=== PATIENT | female | born 1980 | race Caucasian/White ===

== ENCOUNTER 2021-04-30 15:04 | Emergency (ER) | payer BC, SELFPAY ==
[2021-04-30 15:05] VITALS: BP 151/98; PULSE 101; RESP 16; TEMP 37; O2SAT 98; BMI 30.2
--- NOTE | 2021-04-30 17:48 | ED.RN ---
called pt to go to room and no response
== END 2021-04-30 17:48 ==
LOC: ED 17:50
PROVIDERS: PCP Family Medicine
DX: K08.89 Other specified disorders of teeth and supporting structures (principal)

== ENCOUNTER 2021-07-10 13:10 | Emergency (ER) | payer SELFPAY ==
[2021-07-10 13:10] VITALS: BP 127/94; PULSE 90; RESP 18; TEMP 35.9; O2SAT 100; BMI 29.2
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
--- NOTE | 2021-07-10 15:25 | RAD_ITS ---
STUDY: X-RAY - RIGHT HAND REASON FOR EXAM: Female, 40 years old. Injury/Pain TECHNIQUE: 3 view(s) of the hand. COMPARISON: None. FINDINGS: Normal radiocarpal articulation. Normal distal radioulnar joint. Normal visualized carpal bones. Normal carpal articulations Normal carpometacarpal articulation of the thumb. Normal second through fifth carpometacarpal joints. Normal metacarpi. Normal metacarpophalangeal joint of the thumb. Normal interphalangeal joint of the thumb. Normal proximal and distal phalanges of the thumb. Normal metacarpophalangeal joints of the second through fifth fingers. Normal proximal and distal interphalangeal joints of the second through fifth fingers. Normal phalanges of the second through fifth fingers. The soft tissue structures are unremarkable. RAD/Hand Min 3 Views IMPRESSION: Normal x-ray examination of the hand. Electronically Signed: Jeremy Bishop MD at 15:40 EST , Service support ,
== END 2021-07-10 16:42 | disposition home or self-care (01) ==
PROVIDERS: Emergency Provider Emergency Medicine; PCP Family Medicine
DX: S39.012A Strain of muscle, fascia and tendon of lower back, initial encounter (principal); S60.221A Contusion of right hand, initial encounter; V44.5XXA Car driver injured in collision with heavy transport vehicle or bus in traffic accident, initial encounter; Y93.9 Activity, unspecified; Y99.9 Unspecified external cause status; Y92.410 Unspecified street and highway as the place of occurrence of the external cause; Z87.891 Personal history of nicotine dependence
CPT/HCPCS: 72100; 73130; 99282

== ENCOUNTER 2022-12-10 09:45 | Emergency (ER) | payer BC, SELFPAY ==
[2022-12-10 09:46] VITALS: BP 132/100; PULSE 91; RESP 12; TEMP 36.1; O2SAT 100; BMI 30.7
--- NOTE | 2022-12-10 09:51 | EX.ED.DYSGE1 ---
HPI History of Present Illness Chief Complaint: Headache PFSH PFSH Home Medications ferrous sulfate 325 mg (65 mg iron) tablet 325 mg PO DAILY@0800 10/08/13 [History Last Taken 10/18/13 one] vits,calcium no.78-iron fumarate-folic acid 29 mg-1 mg tablet (Prenatabs FA) 1 tab PO DAILY 10/08/13 [History Last Taken 10/18/13 one] ibuprofen 200 mg tablet 600 mg PO Q4H PRN PRN Pain ##60 10/19/13 [Rx Last Taken Unknown] oxycodone-acetaminophen 5 mg-325 mg tablet 1 - 2 tab PO Q6H PRN PRN Pain #20 tabs 10/19/13 [Rx Last Taken Unknown] metoclopramide HCl 5 mg tablet (Reglan) 5 mg PO Q8H PRN PRN nausea and vomiting 7 days #20 tabs 12/10/22 [Rx Last Taken Unknown] Allergy/AdvReac Type Severity Reaction Status Date / Time Penicillins [PCN] Allergy Hives Verified 12/10/22 09:48 Surgical History Hx of arthroscopy of right knee Hx of laparoscopy Hx of tonsillectomy Social History (Updated 07/10/21 @ 15:[address] Jack Langford, DO) Smoking Status: Unknown if ever smoked Electronic Cigarette Use: with nicotine EXAM Physical Exam Const Vital Signs: 12/10/22 09:46 Temperature 97 F L Temperature Source Temporal Pulse Rate 91 Respiratory Rate 12 Blood Pressure 132/100 H Blood Pressure Mean 110 Pulse Ox 100 Oxygen Delivery Method Room Air [facility] MDM Narrative Medical decision making narrative: HISTORY OF PRESENT ILLNESS: 42-year-old female here with headache. Patient states this began 6 days ago. Is been intermittent with no inciting event. Not worse in the morning. Patient notes he did begin from no headache to maximal intensity within 1 minute, however she denies vomiting, neck pain or stiffness, changes in vision, fever, history malignancy, syncope, seizures. REVIEW OF SYMPTOMS: Pertinent positives: Headache Pertinent negatives: Slurred speech, dysphagia, visual loss, loss of sensation, loss of movement, syncope PHYSICAL EXAM: Nursing triage notes reviewed, Vital signs reviewed Constitutional: please see mdm HENT: MMM Eyes: Pupils equal round and reactive to light, Extraocular muscles intact Neck: No stridor, no JVD, full neck ROM Lungs: Clear to auscultation, No wheezing or rales. No increased work of breathing, no conversational dyspnea, no accessory muscle use, no nasal flaring. No respiratory distress noted Heart: Regular rate and rhythm, No murmurs, No rubs and No gallops, 2+ distal pulses (radial, femoral, posterior tibial) in all extremities Abdomen: Soft, there is no tenderness, rigidity, rebound or guarding, no obvious peritoneal signs, no palpable pulsatile abdominal masses, no auscultated abdominal bruit : No CVAT Extremities: No edema Neuro: Alert and oriented x3, neuro exam at baseline, cranial nerves II through XII are intact. No pain with extraocular muscle movement. There is negative test of skew. Normal speech. 5 of 5 strength in upper and lower extremities in flexion extension. Intact sensation to light touch in upper and lower extremity dermatomes. No truncal or extremity ataxia. No dysdiadochokinesia. Normal gait. 2+ reflexes. No meningeal signs. Negative Babinski. NIH of 0 Skin: No rash or lesions noted MEDICAL DECISION MAKING: Chief Complaint: Headache External records reviewed: No recent advanced of the brain MDM Narrative: Patient was hemodynamically stable, afebrile, nontoxic-appearing there are no focal neurologic deficits. I considered the following differential diagnosis: Bleed, mass, primary headache The patient looks great and is in no significant objective discomfort currently. The patient's headache is non-specific. Exam is unremarkable. The patient is in no distress and the patient?s neurological exam is non-focal, neck is supple and without meningismus. The headache is not consistent with meningitis or infection, nor is it consistent with intracranial bleed (SAH etc.), carotid dissection, nor mass by history and examination. I obtained a CT scan of the patient's head to rule out less likely but certainly dangerous etiology such as bleed, mass. CT scan showed no evidence of intracranial bleed, mass. I gave the patient medication and outpatient follow-up. The patient was instructed to return as needed or if symptoms changed or worsened, fever developed or inability to tolerate fluids. The patient agreed with plan. Factors affecting care:. None Social determinants of health: None History obtained from others: None none Shared decision making: I will have a discussion with the patient and or visitors regarding risk/benefits of further testing or admission. They will be made aware of of the risk/benefits inherent in this decision they will be given the opportunity to voice understanding. Consults: Radiography Diagnostic Testing: Clinical Impression(s) from Imaging Studies Brain CT 12/10/22 10:00 IMPRESSION: Partial opacification of the left maxillary sinus as well as the ethmoid sinuses bilaterally. Electronically Signed: Jeremy Bishop MD at 10:30 EDT , Discharge Plan Triage Chief Complaint: Headache ED Provider: Ifeanyi Cagle Dx/Rx/DC Orders Clinical Impression: Headache Instructions: ED Sinus Headache Prescriptions: New metoclopramide HCl [Reglan] 5 mg tablet 5 mg PO Q8H PRN PRN (Reason: nausea and vomiting) 7 Days Qty: 20 0RF No Action vit,[id number] [Prenatabs FA] 1 TABLET tablet 1 tab PO DAILY ferrous sulfate 325 MG tablet 325 mg PO DAILY@0800 oxycodone-acetaminophen 1 TABLET tablet 1 - 2 tab PO Q6H PRN PRN (Reason: Pain) Qty: 20 0RF ibuprofen 200 MG tablet 600 mg PO Q4H PRN PRN (Reason: Pain) Qty: 60 1RF Stand Alone Forms: ED Work / School Excuse Primary Care Provider: Mark Godwin Referrals: Mark Godwin MD [Primary Care Provider] - Activity Restrictions/Additional Instructions: Thank you for trusting us with your care today! Please take Tylenol (2 pills, 650 mg), ibuprofen (2 pills, 400 mg) every 6 hours as needed for pain and fever control. Please take Reglan as needed for headache. Please return to the emergency department if your symptoms change or worsen. Please follow with your primary care physician for further outpatient evaluation and management. Disposition Disposition: Home, Self Care Discharge Date/Time: 12/10/22 10:49
--- NOTE | 2022-12-10 10:00 | CT_ITS ---
STUDY: CT BRAIN WITHOUT CONTRAST REASON FOR EXAM: Female, 42 years old. [facility] RADIATION DOSAGE (If Supplied By Facility): CTDIvol = ( 44.99 ) mGy, DLP = ( 745.49 ) mGycm TECHNIQUE: Transaxial CT imaging of the brain was performed without administration of intravenous contrast material. Individualized dose optimization techniques were used for this CT. COMPARISON: No relevant priors. FINDINGS: Normal soft tissue structures. Normal calvarium. Normal size ventricles and extra-axial spaces for the patient''s age. Normal white matter tracts of the cerebral hemispheres. Normal basal ganglia and thalami. Normal brainstem. Normal cerebellum. There is no intracranial hemorrhage. There are no findings of an acute ischemic infarction. There is partial opacification of the inferior aspect of the left maxillary sinus as well as the ethmoid sinuses bilaterally. CT/Brain/Head without Contrast IMPRESSION: Partial opacification of the left maxillary sinus as well as the ethmoid sinuses bilaterally. Electronically Signed: Jeremy Bishop MD at 10:30 EDT ,
== END 2022-12-10 10:49 | disposition home or self-care (01) ==
PROVIDERS: Emergency Provider Emergency Medicine; PCP Family Medicine; Visit Provider Emergency Medicine
DX: R51.9 Headache, unspecified (principal)
CPT/HCPCS: 70450; 99282

== ENCOUNTER 2025-05-10 20:50 | Observation (INO) | payer BC, SELFPAY ==
[2025-05-10 20:51] VITALS: BP 150/98; PULSE 81; RESP 18; TEMP 36.2; O2SAT 98; BMI 38.6
--- NOTE | 2025-05-10 21:15 | CT_ITS ---
PROCEDURE: ABDOMEN/PELVIS W IV CONT ONLY 05/10/2025 REASON FOR EXAM: RIGHT UPPER QUADRANT ABDOMINAL PAIN. SUSPECT GALL TECHNIQUE: Procedure Code: [id number] Modality: CT Procedure: ABDOMEN/PELVIS W IV CONT ONLY Coronal and Sagittal reconstruction series were provided. CONTRAST: Isovue 370 VOLUME: 90 mL One or more dose reduction techniques were used (e.g., Automated exposure control, adjustment of the mA and/or kV according to patient size, use of iterative reconstruction technique. RADIATION DOSE SUMMARY: CTDlvol: 21.5 mGy DLP: 1137 mGycm COMPARISON: None FINDINGS: Lung bases: Bibasilar atelectasis. Liver: Diffuse fatty infiltration. Gallbladder: Gallbladder is distended with sludge there is 7 mm calculus within gallbladder fundus and 1.3 cm calculus impacted within gallbladder neck. Mild CBD dilatation of 7 mm. No definite evidence of pericholecystic fluid. Spleen: Normal size. Pancreas: Normal size without evidence of mass surrounding inflammation or ductal dilation. Adrenals: Nonspecific unremarkable bilateral adrenal glands Kidneys: Normal renal sizes. No hydronephrosis. Bladder: Unremarkable Reproductive Organs: Unremarkable Bowel: No bowel obstruction. [id number] stool burden. Scattered colonic diverticulosis without evidence of diverticulitis. Appendix: The appendix is not identified. There is no inflammatory process identified in the right lower quadrant to suggest appendicitis. Lymph nodes: Multiple scattered mesenteric lymph nodes such as right lower quadrant lymph node measuring 7 mm (series 2, image 67) additional subcentimeter scattered nodules are also visualized. Vasculature: The abdominal aorta and IVC are normal. Peritoneum / Retroperitoneum: Unremarkable Bones: Unremarkable CT/Abdomen/Pelvis W IV Cont ONLY IMPRESSION: Gallbladder distended with sludge. There is 7 mm calculus within gallbladder f undus and 1.3 cm calculus impacted within gallbladder neck. There is no definite evidence of surrounding pericholecystic fluid. Diffuse hepatic steatosis. Scattered mesenteric lymph nodes likely reactive. Reading Location: [id number]
--- NOTE | 2025-05-10 21:16 | ED.VIS.GI ---
HPI HPI - GI History of Present Illness Chief Complaint: Abd Pain Informant: patient Abdominal Pain/Flank Pain Onset: Today and Hours Context: Gradual Onset Timing: Continuous Location: RUQ Current Severity: Moderate Maximum Severity: Moderate Worsened by: Nothing Relieved by: Nothing Nausea/Vomiting/Emesis GI Symptom: Positive for Nausea Onset: Today Severity: Moderate Diarrhea/Melena/Hematochezia GI Symptom: Positive for Diarrhea; Negative for Melena or Hematochezia Onset: Today Stool Quality: Positive for Loose Severity: Mild Associated Symptoms Associated Symptoms: Negative for Dysuria, Frequency, Hematuria or Urgency Narrative Narrative: 44-year-old female right upper quadrant abdominal pain began around 11 AM today. Associated nausea and diarrhea. No vomiting no fever no dysuria. History of gallbladder trouble 12 years ago when she was but cannot remember what the ultrasound showed never had her gallbladder taken out. She has had tubal ligation no other abdominal surgeries. The last several weeks to months she has not had significant abdominal problems. No drastic weight loss. No dysuria. States she cannot be she is currently single has had tubal ligation. Prior similar symptoms: Yes Recent Illness/Hospitalization: No PFSH PFSH Home Medications ?Medication ?Instructions ?Recorded ?Last Taken ?Type ferrous sulfate 325 mg (65 mg 325 mg PO DAILY@0800 10/08/13 10/18/13 History iron) tablet one vits,calcium no.78-iron 1 tab PO DAILY 10/08/13 10/18/13 History fumarate-folic acid 29 mg-1 mg one tablet (Prenatabs FA) ibuprofen 200 mg tablet 600 mg (3 x 200 mg) PO Q4H PRN PRN 10/19/13 Unknown Rx Pain ##60 oxycodone-acetaminophen 5 mg-325 1 - 2 tab PO Q6H PRN PRN Pain #20 10/19/13 Unknown Rx mg tablet tabs metoclopramide HCl 5 mg tablet 5 mg PO Q8H PRN PRN nausea and 12/10/22 Unknown Rx (Reglan) vomiting 7 days #20 tabs Allergy/AdvReac Type Severity Reaction Status Date / Time Penicillins (PCN) Allergy Hives Verified 05/10/25 20:51 Surgical History Hx of laparoscopy Hx of tonsillectomy Hx of arthroscopy of right knee Social History housing: house Smoking Status: Unknown if ever smoked Electronic Cigarette Use: with nicotine ROS ROS ED ROS Narrative Abdominal pain. Nausea. Diarrhea. Constitutional Constitutional ED: Denies chills or fever(s) ENT ENT ED: Denies ear pain Cardiovascular Cardiovascular: Denies chest pain Respiratory/Chest Respiratory/Chest: Denies cough or dyspnea Gastrointestinal Gastrointestinal: Reports abdominal pain, diarrhea and nausea; Denies constipation, melena or vomiting Genitourinary Genitourinary ED: Denies dysuria or hematuria Musculoskeletal Musculoskeletal: Denies arthralgias or back pain Integumentary Denies abscess or Abrasions Neurologic Neurologic: Denies headache(s) Psychiatric Psychiatric: Denies anxiety Endocrine Endocrinology: Denies polydipsia Hematologic/Lymphatic Hematologic/Lymphatic: Denies easy bleeding or easy bruising Allergic/Immunologic Allergic/Immunologic ED: Denies mouth swelling, tongue swelling or urticaria EXAM Physical Exam Narrative Exam Narrative: Well-appearing 44-year-old female vital signs stable afebrile. Does not look septic toxic. HEENT exam pupils round react light. Moist mucous members. Neck nontender no JVD. No lymphadenopathy. Lungs clear to auscultation bilaterally. Heart regular rhythm no murmur rate about 80. Chest wall ribs nontender. Abdomen soft nondistended normal bowel sounds without peritoneal signs but does have right upper quadrant tenderness. Left upper and left lower quadrant unremarkable. Minimal right lower quadrant tenderness. No obstruction no hernia or mass. Back nontender no CVA tenderness. Moving all 4 extremities. Nontender no edema normal strength. Neurologically she is awake alert. No focal motor deficits. Const Vital Signs: 05/10/25 20:51 Temperature 97.2 F L Temperature Source Temporal Pulse Rate 81 Respiratory Rate 18 Blood Pressure 150/98 H Blood Pressure Mean 115 Pulse Ox 98 Oxygen Delivery Method Room Air Positive well nourished and well developed; Negative for cachectic, contractures or unkempt General Appearance ED: well developed and NAD; Negative for unkempt, cachectic, contractures or pallor Nutritional Appearance: Negative for cachectic HEENT Reports moist mucous membranes normocephalic and atraumatic Eyes PERRL and EOMs intact bilaterally Neck no lymphadenopathy, supple and no JVD Resp normal respiratory effort and clear to auscultation bilaterally Cardio regular rate, regular rhythm, S1 normal heart sound, S2 normal heart sound and no murmurs GI non-distended and no masses; Negative for non-tender Inspection: Negative for abdominal distention Auscultation: normoactive bowel sounds Palpation: soft and tender; Negative for guarding, rigid, hernia, mass, pulsatile mass or rebound tenderness present Back/Spine no CVA tenderness General Back: Negative for CVA tenderness Cervical Spine: Negative for cervical spine tenderness Thoracic Spine / Upper Back: Negative for thoracic spinal tenderness Lumbar Spine / Lower Back: Negative for lumbar spinal tenderness Coccyx: Negative for other Extremity full ROM General Extremety ED: Negative for edema or tenderness General Extremity: Negative for edema Neuro CN's II-XII intact bilaterally and moves all extremities Sensorium / Orientation: alert, oriented to person, oriented to place and oriented to time Motor Exam: strength 5/5 throughout; Negative for general weakness or strength abnormal Psych mental status grossly normal and thought process normal Appearance: Negative for unkempt Skin no wounds General Skin Exam: Negative for jaundice or pallor Lesions: no lesions Rashes: no rashes Trauma: Negative for abrasion Nails: Negative for discolored MDM MDM MDM Narrative Medical decision making narrative: 44-year-old female right upper quad abdominal pain suspect gallbladder disease. Cholelithiasis versus cholecystitis versus other etiologies. CAT scan labs pending. She will be treated for pain with morphine, IV Toradol and IV Zofran. Repeat exam patient is doing better but her pain started to return. We discussed her test results which are consistent with cholelithiasis with biliary colic. I spoke to general surgeon Dr. Yan Ayala. He reviewed her test results. He is comfortable with her being admitted to have her gallbladder removed tomorrow. I discussed all this with the patient and she is comfortable with the plan. History & Record Review Discussion w/independent historian: Patient Additional record(s) reviewed:: Prior inpatient record, Prior outpatient record, Prior ED visit and Prior labs Lab Data Attestation: I reviewed the patient's lab results. Lab results narrative: CBC shows a white 11.6. H&H 12 and 36. Platelets 286. Electrolytes show a gap of 12. Normal BUN and creatinine. Glucose 125. Liver enzymes normal. Lipase 34. Serum test negative. UA shows no nitrites, no white or red cells. No bacteria. Labs: Laboratory Results - last 24 hr 05/10/25 05/10/25 05/10/25 21:06 21:22 21:42 WBC 11.6 H RBC 4.39 Hgb 12.2 Hct 36.9 L MCV 84.1 MCH 27.8 MCHC 33.1 RDW Std Deviation 41.0 RDW Coeff of Devi 13.3 Plt Count 286 MPV 10.3 Immature Gran % (Auto) 0.500 Neut % (Auto) 72.0 H Lymph % (Auto) 19.6 [place] % (Auto) 5.0 Eos % (Auto) 2.5 Baso % (Auto) 0.4 Absolute Neuts (auto) 8.4 H Absolute Lymphs (auto) 2.28 Nucleated RBC % 0 Sodium 137 Potassium 4.0 Chloride 104 Carbon Dioxide 21.3 Anion Gap 12 BUN 7 Creatinine 0.74 Estim Creat Clear Calc 104.78 Est GFR (MDRD) Non-Af 103 BUN/Creatinine Ratio 9.3 L Glucose 125 H Calcium 8.5 Total Bilirubin 0.21 AST 18 ALT 15 Alkaline Phosphatase 81 Total Protein 6.7 Albumin 4.0 Globulin 2.7 Albumin/Globulin Ratio 1.5 Lipase 34 Serum , Qual NEGATIVE Urine Color Yellow Urine Clarity Clear Urine pH 7.0 Ur Specific [place] 1.010 Urine Protein Negative Urine Glucose (UA) Normal Urine Ketones Negative Urine Occult Blood 10 H Urine Nitrite Negative Urine Bilirubin Negative Urine Urobilinogen Normal Ur Leukocyte Esterase 25 H Urine RBC 0-5 SEEN Urine WBC 0-5 SEEN Ur Squamous Epith Cells 0-5 SEEN Urine Bacteria 0 SEEN Urine Mucus 0 SEEN Radiography Diagnostic Testing: Clinical Impression(s) from Imaging Studies Abdomen/Pelvis CT 05/10/25 21:15 IMPRESSION: Gallbladder distended with sludge. There is 7 mm calculus within gallbladder fundus and 1.3 cm calculus impacted within gallbladder neck. There is no definite evidence of surrounding pericholecystic fluid. Diffuse hepatic steatosis. Scattered mesenteric lymph nodes likely reactive. Reading Location: [id number] Discharge Plan Triage Chief Complaint: Abd Pain ED Provider: Ryan Falcon Dx/Rx/DC Orders Prescriptions: No Action vit,radha [id number] [Prenatabs FA] 1 TABLET tablet 1 tab PO DAILY ferrous sulfate 325 MG tablet 325 mg PO DAILY@0800 oxycodone-acetaminophen 1 TABLET tablet 1 - 2 tab PO Q6H PRN PRN (Reason: Pain) Qty: 20 0RF ibuprofen 200 MG tablet 600 mg PO Q4H PRN PRN (Reason: Pain) Qty: 60 1RF metoclopramide HCl [Reglan] 5 mg tablet 5 mg PO Q8H PRN PRN (Reason: nausea and vomiting) 7 Days Qty: 20 0RF Primary Care Provider: Mark Godwin Referrals: Mark Godwin MD [Primary Care Provider, Medical] Print Language: Portuguese
[2025-05-10 21:17] LABS: Hematocrit 36.9 % (37-47); Hemoglobin 12.2 g/dL (12.0-15.0); Immature Granulocytes Count 0.060 X10^3/uL (0.0-0.0); Mean Corp Hgb Conc 33.1 g/dL (32-36); Mean Corpuscular Volume 84.1 fL (81-99); Mean Platelet Vol. 10.3 fl (6.2-12.0); NRBC Flagged by Analyzer 0 % (0-5); Platelet Count 286 K/mm3 (150-450); RBC Distribution Width CV 13.3 % (11.6-14.6); RBC Distribution Width SD 41.0 fl (35.1-43.9); Red Blood Count 4.39 M/mm3 (4.2-5.4); White Blood Count 11.6 K/mm3 (4.4-11.0)
[2025-05-10] MEDS: Ketorolac 30 MG/ML Syringe IV (21:20)
[2025-05-10 21:36] LABS: AST(SGOT) 18 U/L (<=31); Alanine Aminotransfer ALT/SGPT 15 U/L (<=34); Albumin, Serum 4.0 g/dL (3.5-5.0); Alkaline Phosphatase 81 U/L (35-104); Anion Gap 12 (5-15); BUN 7 mg/dL (4-19); BUN/Creat Ratio 9.3 RATIO (10-20); Calcium,Total 8.5 mg/dL (7.6-11.0); Carbon Dioxide 21.3 mmol/L (21.0-32.0); Chloride 104 mmol/L (98-108); Estimated Creatinine Clearance 104.78 ml/min (50-250); Globulin 2.7 g/dL (2.2-4.2); Glucose 125 mg/dL (70-99); Lipase 34 U/L (13-75); Potassium 4.0 mmol/L (3.3-5.1)
[2025-05-10 21:48] LABS: Mucous, Urine 0 SEEN /hpf (<or=2+)
[2025-05-10 21:49] LABS: Internal QC Validated? YES +Cl - CLEAR BKGD; Pregnancy, Serum, hCG Quali. NEGATIVE Negative
[2025-05-10 21:49] LABS: Color, Urine Yellow (Yellow); Glucose, Dipstick Normal (Normal); Ketone-Dipstick Negative (Negative); Leukocyte Esterase-Dipstick 25 /ul (Negative); Nitrite-Dipstick Negative (Negative); Occult Blood-Urine 10 /ul (Negative); Protein-Dipstick Negative (Negative); Specific Gravity, Urine 1.010 (1.002-1.030); Urine Bilirubin Dipstick Negative (Negative)
[2025-05-10 21:50] LABS: Record Kit Lot#, Serum Preg. 0000980607
[2025-05-10 22:17] LABS: Squamous Epithelial Cells - UA 0-5 SEEN /hpf (5-10)
[2025-05-10 22:18] LABS: Red Blood Cells-Urine 0-5 SEEN /hpf (0-5)
[2025-05-10 22:50] VITALS: BP 124/80; PULSE 70; O2SAT 100
[2025-05-10 23:06] VITALS: BP 150/98; PULSE 81; RESP 18; TEMP 36.2; O2SAT 98
[2025-05-11] VITALS (29 sets, daily range): BP systolic 109–160; BP diastolic 61–92; PULSE 68–114; RESP 12–18; TEMP 36.3–36.8; O2SAT 49–99; BMI 35.4
[2025-05-11] MEDS: Dextrose 5%/0.9% NaCl 1,000 ML 100 ML IV (00:09)
--- NOTE | 2025-05-11 05:55 | EKG12_ITS ---
Test Reason : PRE-OP Blood Pressure : */* mmHG Vent. Rate : 69 BPM Atrial Rate : 69 BPM P-R Int : 136 ms QRS Dur : 82 ms QT Int : 394 ms P-R-T Axes : 76 29 33 degrees QTcB Int : 422 ms Normal sinus rhythm Normal ECG When compared with ECG of 27-Sep-2008 18:48, Vent. rate has decreased by 55 bpm Confirmed by KELVIN PETERSEN, JEAN CARLOS ([id number]), writer editor HANNAH MCRAE ([id number]) on 05/11/2025 1:31:57 PM Referred By: JUSTO Confirmed By: JEAN CARLOS WARREN MD
[2025-05-11] MEDS: Clindamycin 600 MG/50 ML BAG 100 MG IV ×2 (05:56→15:11)
--- NOTE | 2025-05-11 07:22 | RAD_ITS ---
PROCEDURE: CHOLANGIOGRAM/ O R,INITIAL 05/11/2025 REASON FOR EXAM: ABD PAIN TECHNIQUE: Procedure Code: RADCHO Modality: DX Procedure: CHOLANGIOGRAM/ O R,INITIAL. Radiation dose: 1.1 seconds of fluoroscopy. 3.95 mGy. 1 image was obtained. COMPARISON: None FINDINGS: Intraoperative cholangiogram was performed. Unremarkable intra and extrahepatic biliary ducts. No intraluminal filling defect is seen. There is free flow of contrast into the duodenum. RAD/Cholangiogram/ O R,Initial IMPRESSION: Normal intraoperative cholangiogram. Reading Location: [id number]
[2025-05-11 07:34] LABS: Hematocrit 35.7 % (37-47); Hemoglobin 11.5 g/dL (12.0-15.0); Immature Granulocytes Count 0.060 X10^3/uL (0.0-0.0); Mean Corp Hgb Conc 32.2 g/dL (32-36); Mean Corpuscular Volume 85.4 fL (81-99); Mean Platelet Vol. 10.1 fl (6.2-12.0); NRBC Flagged by Analyzer 0 % (0-5); Platelet Count 254 K/mm3 (150-450); RBC Distribution Width CV 13.4 % (11.6-14.6); RBC Distribution Width SD 42.2 fl (35.1-43.9); Red Blood Count 4.18 M/mm3 (4.2-5.4); White Blood Count 7.0 K/mm3 (4.4-11.0)
--- NOTE | 2025-05-11 07:45 | PCM.HP.STD ---
HPI - General General Date of Admission: 05/10/25 Date of Service: 05/11/25 Chief Complaint: Epigastric/Right upper quadrant pain HPI Narrative SOPHIA GRAY, is a 44 F who presents with a 1 day history of epigastric/right upper quadrant pain. Patient states the pain started yesterday around 1100 in the epigastric region radiating straight into her mid back. She noted associated nausea, no vomiting. She noted lack of appetite over the last few days. She notes feeling bloated. She denies fever, however noted chills. She does not feel this is related to reflux symptoms. She notes having diarrhea over the last day, which is abnormal bowel habits for her. Patient states she had a similar episode approximately 11-12 years ago and was told she had gallstones. She was not referred to surgery for removal. She denies having any additional attacks until now. She notes eating a Cheese Estonian for breakfast, 4 1/2 hours the pain occurred. She notes eating a chicken and dumpling soup for lunch and nothing after that. She notes the pain progressed throughout the day and brought her to the ED. 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 She does not take any blood thinners. She denies any cardiac or pulmonary history. She notes surgical abdominal history includes tubal ligation and diagnostic laparoscopy for endometriosis. CT ab/pel demonstrated: IMPRESSION: Gallbladder distended with sludge. There is 7 mm calculus within gallbladder fundus and 1.3 cm calculus impacted within gallbladder neck. There is no definite evidence of surrounding pericholecystic fluid. Diffuse hepatic steatosis. Scattered mesenteric lymph nodes likely reactive. PFSH Home Medications ?Medication ?Instructions ?Recorded ?Last Taken ?Type bupropion HCl 150 mg 24 hr tablet, 150 mg PO DAILY 05/10/25 Unknown History extended release ibuprofen 200 mg tablet 800 mg PO Q4H PRN PRN Pain 05/10/25 Unknown History sertraline 100 mg tablet 150 mg PO DAILY 05/10/25 Unknown History Allergy/AdvReac Type Severity Reaction Status Date / Time Penicillins (PCN) Allergy Hives Verified 05/10/25 20:51 Surgical History Hx of laparoscopy Hx of tonsillectomy Hx of arthroscopy of right knee Social History housing: house Smoking Status: Smoker, status unknown tobacco type: e-cigarettes Electronic Cigarette Use: with nicotine ROS Constitutional Constitutional: Reports systems reviewed and no addt'l complaints, except as documented Eyes Eyes: Reports systems reviewed and no addt'l complaints, except as documented ENT HEENT: Reports systems reviewed and no addt'l complaints, except as documented Cardiovascular Cardiovascular: Reports systems reviewed and no addt'l complaints, except as documented Respiratory/Chest Respiratory/Chest: Reports systems reviewed and no addt'l complaints, except as documented Gastrointestinal Gastrointestinal: Reports systems reviewed and no addt'l complaints, except as documented Genitourinary Genitourinary: Reports systems reviewed and no addt'l complaints, except as documented Musculoskeletal Musculoskeletal: Reports systems reviewed and no addt'l complaints, except as documented Integumentary Integumentary: Reports systems reviewed and no addt'l complaints, except as documented Neurologic Neurologic: Reports systems reviewed and no addt'l complaints, except as documented Psychiatric Psychiatric: Reports systems reviewed and no addt'l complaints, except as documented Endocrine Endocrinology: Reports systems reviewed and no addt'l complaints, except as documented Hematologic/Lymphatic Hematologic/Lymphatic: Reports systems reviewed and no addt'l complaints, except as documented Allergic/Immunologic Allergic/Immunologic: Reports systems reviewed and no addt'l complaints, except as documented Vital Signs Vital Signs Vital Signs: 05/10/25 20:51 05/10/25 22:50 05/10/25 23:06 Temperature 97.2 F L 97.2 F L Temperature Source Temporal Pulse Rate 81 70 81 Respiratory Rate 18 18 Respiratory Effort Respiratory Depth Respiratory Pattern Blood Pressure 150/98 H 124/80 H 150/98 H Blood Pressure Mean 115 94 115 Blood Pressure Source Blood Pressure Position Blood Pressure Location Pulse Ox 98 100 98 Oxygen Delivery Method Room Air 05/11/25 00:22 05/11/25 00:26 05/11/25 06:00 Temperature 98.3 F 97.9 F Temperature Source Oral Oral Pulse Rate 83 78 Respiratory Rate 18 16 Respiratory Effort Normal Non-Labored Respiratory Depth Normal Respiratory Pattern Normal Blood Pressure 128/85 H 120/72 Blood Pressure Mean 99 88 Blood Pressure Source Monitor Monitor Blood Pressure Position Semi-Fowlers Semi-Fowlers Blood Pressure Location Right Arm Right Arm Pulse Ox 98 98 Oxygen Delivery Method Room Air Room Air Room Air Weight Weight: 194 lb 0.108 oz Body Mass Index (BMI) 35.4 Physical Exam Const alert, oriented x3 and no apparent distress HEENT normocephalic and head/scalp atraumatic Eyes PERRL Neck full ROM Lymph Lymphatic: no lymphadenopathy noted Resp normal respiratory effort and clear to auscultation bilaterally Cardio regular rate and regular rhythm GI GI Narrative: Abdomen- distended, soft. Tenderness in the epigastric region. Pain in the RUQ region. no CVA tenderness Back/Spine no CVA tenderness Extremity normal to inspection Skin no rashes or lesions noted Neuro no focal motor deficits and no sensory deficits noted Psych mental status grossly normal, thought process normal and cooperative Results Lab / Micro Data 05/11/25 07:24 05/11/25 07:24 Labs: Laboratory Results - last 24 hr 05/10/25 21:06: WBC 11.6 H, RBC 4.39, Hgb 12.2, Hct 36.9 L, MCV 84.1, MCH 27.8, MCHC 33.1, RDW Std Deviation 41.0, RDW Coeff of Devi 13.3, Plt Count 286, MPV 10.3, Immature Gran % (Auto) 0.500, Neut % (Auto) 72.0 H, Lymph % (Auto) 19.6, [place] % (Auto) 5.0, Eos % (Auto) 2.5, Baso % (Auto) 0.4, Absolute Neuts (auto) 8.4 H, Absolute Lymphs (auto) 2.28, Nucleated RBC % 0, Sodium 137, Potassium 4.0, Chloride 104, Carbon Dioxide 21.3, Anion Gap 12, BUN 7, Creatinine 0.74, Estim Creat Clear Calc 104.78, Est GFR (MDRD) Non-Af 103, BUN/Creatinine Ratio 9.3 L, Glucose 125 H, Calcium 8.5, Total Bilirubin 0.21, AST 18, ALT 15, Alkaline Phosphatase 81, Total Protein 6.7, Albumin 4.0, Globulin 2.7, Albumin/Globulin Ratio 1.5, Lipase 34 05/10/25 21:22: Serum , Qual NEGATIVE 05/10/25 21:42: Urine Color Yellow, Urine Clarity Clear, Urine pH 7.0, Ur Specific [place] 1.010, Urine Protein Negative, Urine Glucose (UA) Normal, Urine Ketones Negative, Urine Occult Blood 10 H, Urine Nitrite Negative, Urine Bilirubin Negative, Urine Urobilinogen Normal, Ur Leukocyte Esterase 25 H, Urine RBC 0-5 SEEN, Urine WBC 0-5 SEEN, Ur Squamous Epith Cells 0-5 SEEN, Urine Bacteria 0 SEEN, Urine Mucus 0 SEEN 05/11/25 07:24: WBC 7.0, RBC 4.18 L, Hgb 11.5 L, Hct 35.7 L, MCV 85.4, MCH 27.5, MCHC 32.2, RDW Std Deviation 42.2, RDW Coeff of Devi 13.4, Plt Count 254, MPV 10.1, Immature Gran % (Auto) 0.900, Neut % (Auto) 71.3 H, Lymph % (Auto) 18.5 L, [place] % (Auto) 6.2, Eos % (Auto) 2.7, Baso % (Auto) 0.4, Absolute Neuts (auto) 5.0, Absolute Lymphs (auto) 1.29, Nucleated RBC % 0 Imaging Radiology Impression Abdomen/Pelvis CT 05/10/25 21:15 IMPRESSION: Gallbladder distended with sludge. There is 7 mm calculus within gallbladder fundus and 1.3 cm calculus impacted within gallbladder neck. There is no definite evidence of surrounding pericholecystic fluid. Diffuse hepatic steatosis. Scattered mesenteric lymph nodes likely reactive. Reading Location: [id number] Assessment & Plan Assessment/Plan (1) Biliary colic: (2) Cholelithiasis: (3) Abdominal pain: PLAN: Plan I am seeing this patient in conjunction with Dr. Medley. He has independently evaluated this patient. Patient is a 44 y/o F who presented with a 1 day history of epigastric and RUQ pain with associated nausea. CT scan of the ab/pel demonstrated gallbladder distention with sludge, 0.7 mm gallstone and 1.3 cm gallstone. No evidence surrounding pericholecystic fluid. Patient continues to be painful in the right upper quadrant with palpation. Dr. Medley will plan to perform a laparoscopic cholecystectomy with intraoperative cholangiogram. Procedure details, risks and benefits have been explained. Patient has had the opportunity to ask and have questions answered. Patient verbally understands and agrees with the plan. Thank you for allowing us to participate in this patient's care. Charges/Coding Visit Charges Inpatient E&M: 80857 Subs Hosp L1 (pre-op; no charge)
[2025-05-11] MEDS: 0.9% Saline Lock 10 ML Syringe IV (08:16)
[2025-05-11 08:31] LABS: AST(SGOT) 40 U/L (<=31); Alanine Aminotransfer ALT/SGPT 33 U/L (<=34); Albumin, Serum 4.0 g/dL (3.5-5.0); Alkaline Phosphatase 80 U/L (35-104); Anion Gap 9 (5-15); BUN 7 mg/dL (4-19); BUN/Creat Ratio 10.3 RATIO (10-20); Calcium,Total 8.3 mg/dL (7.6-11.0); Carbon Dioxide 25.3 mmol/L (21.0-32.0); Chloride 103 mmol/L (98-108); Estimated Creatinine Clearance 108.76 ml/min (50-250); Globulin 2.4 g/dL (2.2-4.2); Glucose 103 mg/dL (70-99); Potassium 3.9 mmol/L (3.3-5.1)
[2025-05-11] MEDS: Lactated Ringers 1,000 ML 15 ML IV (10:05)
--- NOTE | 2025-05-11 10:20 | PRE.ANES_ITS ---
ASA Classification* ASA Classification ASA Classification: 2 and E Assessment & Plan Anesthesia* Anesthesia Assessment Anesthesia Assessment: Discussed sedation and/or anesthesia options, risks, benefits, and alternatives with patient/parents/legal guardian/POA. Questions invited. The patient/parents/legal guardian/POA seems to understand and agrees to proceed with anesthesia plan. Reviewed the physical assessment, medical history, allergy history and patient home medications list prior to surgery/procedure/anesthetic and documented any changes. Performed airway and anesthesia risk assessments. Anesthesia Type Anesthesia Type: General History Source History Obtained from:: Patient and Chart Anesthesia Focused Assessment* Temperature: 97.5 F Pulse Rate: 68 Blood Pressure: 112/76 Respiratory Rate: 14 Pulse Ox: 97 Oxygen Delivery Method: Room Air Airway Assessment Mouth opens: >3 cm Mallampati Score: II Teeth Condition: Intact Neck Range of motion (ROM): Full ROM Labs Anesthesia Preop lab: CBC WBC, (4.4-11.0) 7.0 K/mm3 Today, 07:24 RBC, (4.2-5.4) 4.18 M/mm3 L Today, 07:24 Hgb, (12.0-15.0) 11.5 g/dL L Today, 07:24 Hct, (37-47) 35.7 % L Today, 07:24 Plt Count, (150-450) 254 K/mm3 Today, 07:24 CHEMISTRY Potassium, (3.3-5.1) 3.9 mmol/L Today, 07:24 Sodium, (133-145) 138 mmol/L Today, 07:24 BUN, (4-19) 7 mg/dL Today, 07:24 Creatinine, (0.70-1.20) 0.68 mg/dL L Today, 07:24 Glucose, (70-99) 103 mg/dL H Today, 07:24 COAG Pre-Assessment Diagnosis/Proposed Procedure Planned Operative Procedure(s): Laparoscopic cholecystectomy Anesthesia History Anesthesia History - cradle slide maker: Anesthesia History - cradle slide maker Hx Hospitalization Any Problems With Anesthesia No 05/11/25 00:21 Cholinesterase deficiency No 05/11/25 00:21 You/Your Family Experience No 05/11/25 00:21 fever (hyperthermia) with Relationship Recent Exposure to Contagious No 05/11/25 00:21 Disease Does patient have nerve No 05/11/25 00:21 stimulator Patient instructed to have No 05/11/25 00:21 device shut off --Does patient have Pacemaker No 05/11/25 08:22 or ICD? When Was Last Pacemaker Check QUESTION #4 FULL TEXT: You/Your Family Experience fever (hyperthermia) with Anesthesia Last Oral Intake Last Oral intake: Last Oral Intake NPO since 00:01 05/11/25 08:22 Meds taken in AM with sips of No 05/11/25 08:22 water? Meds patient instructed to take am of surgery PONV PONV - cradle slide maker: PONV - cradle slide maker Female HX of Motion Sickness HX of N/V After Surgery Non-Smoker Duration of Surgery greater than 60 minutes Number of Risk Factors PONV Score Height & Weight Height & Weight: Anesthesia: Height & Weight Height 5 ft 2 in 05/11/25 08:22 Weight: 87.997 kg 05/11/25 08:22 Body Mass Index (BMI) 35.4 05/11/25 08:22 Respiratory Assessment Respiratory Assessment - cradle slide maker: Respiratory Tract Infection Hx - cradle slide maker Hx Respiratory Tract Infection No 05/11/25 00:21 STOP Sleep Apnea STOP Sleep Apnea - cradle slide maker: STOP Sleep Apnea - cradle slide maker Hx Hypertension No 05/10/25 23:58 Hx Sleep Apnea No 05/10/25 23:58 CPAP BIPAP Do you snore loudly (louder No 05/10/25 23:58 than talking or can be heard Do you often feel tired/ No 05/10/25 23:58 fatigued/ sleepy during daytime? Has anyone observed you stop No 05/10/25 23:58 breathing during sleep? STOP Results Negative 05/10/25 23:58 QUESTION #5 FULL TEXT : Do you snore loudly (louder than talking or can be heard through closed doors)? Tobacco Use History Tobacco Use History - cradle slide maker: Tobacco Use History - cradle slide maker Tobacco Use Smoking Status Smoker, status unknown 05/10/25 23:58 Hx Tobacco Use No 05/10/25 23:58 Years Smoking Packs Smoked per Day Smoking Cessation Date was within the last 15 years Hx Smoking Cessation Date Hx Smoking Cessation Counseling Hematologic Medial History Hematologic Hx - cradle slide maker: Hematologic Medical Hx - stain wiper Hx of Blood Transfusion No 05/10/25 23:58 Hx of Transfusion in last 3 No 05/10/25 23:58 Months Date of Last Transfusion (if within last 3 months) Ever experience any problems No 05/10/25 23:58 with transfusion(s)? Specify any problems Hx of Preganancy in last 3 No 05/10/25 23:58 Months Nurse Filling Out Transfusion AHINES 05/10/25 23:58 & Questions: Date: 05/10/25 05/10/25 23:58 Time: 23:59 05/10/25 23:58 Patient unable to answer at this time (ie. confused, unrespo /Reproduction History /Reproductive History - cradle slide maker: /Reproductive Hx- cradle slide maker Hx Now No 05/11/25 00:21 Gestational Age (in weeks): EDC: Hx Hx Para Hx Section SAB No 05/11/25 00:21 Active Medications Active Medications: Current Medications Generic Name Dose Route Start Last Admin Trade Name Freq PRN Reason Stop Dose Admin Acetaminophen 1,000 mg 05/11/25 06:00 05/11/25 05:53 Acetaminophen 500 Mg Tablet PO Not Given Q8 CAROL Sodium Chloride 250 mls @ 15 mls/hr 05/10/25 23:47 IV .[id number] PRN Additional IVPB Infusion Dextrose/Sodium Chloride 1,000 mls @ 100 mls/hr 05/10/25 23:49 05/11/25 00:09 Dextrose 5%/0.9% Nacl IV 100 mls/hr .Q10H CAROL Administration Clindamycin Phosphate 600 mg in 50 mls @ 100 mls/hr 05/11/25 06:00 05/11/25 06:39 Cleocin IV Infused Q8 CAROL Infusion Lactated Ringer's 1,000 mls @ 15 mls/hr 05/11/25 10:00 05/11/25 10:05 IV 15 mls/hr .Q48H CAROL Administration Influenza Virus Vacc Trival Recomb 45 mcg 05/12/25 10:00 Flu Vaccine (6mos Up) 45 Mcg/0.5 Ml Syringe IM 05/12/25 10:01 .ONCE ONE Magnesium Hydroxide 30 ml 05/10/25 23:49 Magnesium Hydroxide 30 Ml Udc PO DAILY PRN PRN Constipation Morphine Sulfate 2 - 4 mg 05/10/25 23:49 05/11/25 05:57 Morphine 2 Mg/Ml Syringe IV 4 mg Q3H PRN PRN Administration Pain Score 6-10 Ondansetron HCl 4 mg 05/10/25 23:49 05/11/25 08:16 Ondansetron 4 Mg/2 Ml Vial IV 4 mg Q8H PRN PRN Administration NAUSEA/VOMITING Oxycodone HCl 5 mg 05/10/25 23:49 Oxycodone 5 Mg Tablet PO Q4H PRN PRN Pain Score 4-10 Sodium Chloride 10 - 40 ml 05/10/25 23:47 05/11/25 08:16 0.9% Saline Lock 10 Ml Syringe IV 10 ml UD PRN Administration SALINE FLUSH PFSH Home Medications ?Medication ?Instructions ?Recorded ?Last Taken ?Type bupropion HCl 150 mg 24 hr tablet, 150 mg PO DAILY 02/25 Unknown History extended release ibuprofen 200 mg tablet 800 mg PO Q4H PRN PRN Pain 1 Unknown History sertraline 100 mg tablet 150 mg PO DAILY 05/10/25 Unk nown History Allergy/AdvReac Type Severity Reaction Status Date / Time Penicillins (PCN) Allergy Hives Verified 05/11/25 09:59 Surgical History Hx of laparoscopy Hx of tonsillectomy Hx of arthroscopy of right knee Social History housing: house Smoking Status: Smoker, status unknown tobacco type: e-cigarettes Electronic Cigarette Use: with nicotine Review of Systems (Anesthesia) ROS Narrative System reviewed and no additional complaints, except as documented.
--- NOTE | 2025-05-11 11:00 | GALL_PTH ---
PATIENT: SOPHIA GRAY LOC: MS3 U#:[id number] AGE/SX: 44/F ROOM: MS311 RE05/10/[address]: Dr. Rosalino Medley MD : 1980 BED: 1 DIS: 05/12/2025 SPEC #: [id number] RECD: 05/11/25 14:20 STATUS: [place] MIGUEL #: [id number] DARRYN: 05/11/25 11:[address]: Rosalino Medley DEPT: SURGICAL PATHOLOGY RECD BY: Hunter Rodrigues ENTERED: 05/11/25 15:12 SP TYPE: JENNI CHRISTIAN DR: Dr. Mark Godwin MD Tissues: A - Gallbladder, NOS Procedures: Surgery Specimen Level III HEADER OPERATION: Laparoscopic cholecystectomy with IOC PRE-OP DIAGNOSIS: Biliary colic, cholelithiasis, abdominal pain TISSUE SUBMITTED: A- Gallbladder MICROSCOPIC DIAGNOSIS A. Gallbladder, laparoscopic cholecystectomy: * Acute and chronic cholecystitis * Cholelithiasis MICROSCOPIC DESCRIPTION Slides are reviewed. GROSS DESCRIPTION A. Received in formalin labeled with the patient's name and date of . Designated as gallbladder is a 6.1 x 3.3 x 1.9 cm nunn-pink to red, somewhat shaggy and intact gallbladder with attached patent cystic duct (inked black, shaved). A lymph node is not present. Opening reveals yellow-green, tenacious bile and multiple irregular to bosselated, yellow choleliths, ranging <0.1 cm to 1.3 cm. The mucosa is nunn-pink to red and granular with a maximum wall thickness of 0.2 cm. Cholesterolosis is present. Engagement Mgr sections are submitted in 1 cassette. [place] 05/11/2025 CPT:96266
[2025-05-11] MEDS: fentaNYL 100 MCG/2 ML Ampul IV (11:04)
[2025-05-11] MEDS: Midazolam 2 MG/2 ML Syringe IV (11:04)
[2025-05-11] MEDS: Lidocaine 1% (5 ml sdv) 5 ML Vial IV (11:17)
--- NOTE | 2025-05-11 11:28 | NURSING ---
0945-pt off unit via bed for surgery
[2025-05-11] MEDS: Bupiv/Epi 0.25% 30 ML Vial (12:00)
[2025-05-11] MEDS: LACTATED RINGERS 1050 ML IV (12:37)
--- NOTE | 2025-05-11 12:47 | OP.PCM_ITS ---
Procedures Digestive 40xxx-49xxx: [id number] Laparo cholecystectomy/graph Operative Report (Standard) Operative Information Date of Procedure: 05/11/25 Pre-Operative Diagnosis: Acute cholecystitis/cholelithiasis Post-Operative Diagnosis: Same Surgery/Procedure Performed: Laparoscopic cholecystectomy with intraoperative cholangiograms resin coater: Yes Motor Scooter Mechanic: Charly Craig Tasks completed by [id number] directory assistance operator: Closing, Trocar and Retracting Additional bankruptcy legal assistant?: No Type of Anesthesia: General and Local RN Documented Start/Stop Times: Operation Date: 05/11/25 11:00 Case Time Into Pre-Op 05/11/25 09:50 Anesthesia Start 05/11/25 10:59 Into Room 05/11/25 10:59 Out of Pre-Op 05/11/25 11:00 Procedure Start 05/11/25 11:20 Procedure Start Time: 11:20 Procedure Stop Time: 12:35 Select all DRAINS/GRAFTS/IMPLANTS that apply: None Special Medications: IV clindamycin Estimated Blood Loss: 20 mL Specimen collected: Yes Description of specimen(s) removed: Gallbladder Description of surgery: The patient is a 44-year-old female who was admitted overnight with right upper quadrant pain and gallstones. Ultrasound showed slight gallbladder wall thickening with no pericholecystic fluid. Her labs were unremarkable however pain was not subsiding. She was subsequently admitted with plans for cholecystectomy. We discussed the details of the planned procedure including risks benefits and alternatives. She wished to proceed. She was brought to the operating room today following informed consent. Preoperative antibiotics were given and a timeout was performed. She was placed supine on the operative table with arms outstretched and arm boards. A general endotracheal anesthesia was induced. The abdomen was then prepped and draped in the usual sterile manner. 5 mm incision was made just below the umbilicus. 5 mm trocar was placed optically. This was placed without incident. Once in place the abdomen was then fully insufflated with CO2 gas. A 5 mm 0 degree scope was inserted there were no signs of bowel or vascular injury. 5 mm tr ocars x 2 were then inserted on the right side of the abdomen. These were placed under direct visualization without difficulty. A 10 mm trocar was placed in the epigastric area. The gallbladder was identified. It was reflected in a cephalad direction. There was adhesions to the undersurface of the gallbladder. These were peeled down carefully. The peritoneum on either side of the gallbladder was incised using hook electrocautery connected to a J-hook. This provided mobilization of the gallbladder to facilitate dissection of the infundibulum. The infundibulum was carefully dissected out. The cystic duct and cystic artery were both dissected out circumferentially. The lower aspect of the gallbladder was also dissected free from the undersurface of the liver such that 2 and only 2 structures were seen going to and from the gallbladder. This established a critical view of safety.. A 10 mm clip was placed on the gallbladder side the cystic duct. Curved scissors were then used to make a small ductotomy. Through the ductotomy, a catheter was inserted and contrast was injected well under C arm. Fluoroscopy showed good transit through the biliary tree without any obvious filling defects. We were within the cystic duct. The cholangiogram catheter was then removed. 310 mm clips were placed on the cystic duct stump and this was then transected. The cystic artery was then clipped and transected in a similar manner. The gallbladder was then cauterized off the undersurface of the liver. Once freed it was placed Endobag and brought out through the 10 mm trocar site. The 10 mm trocar was then replaced. The liver bed was irrigated. Couple areas were cauterized to ensure hemostasis. Hemostatic agent was also applied as the liver was somewhat of a raw surface. The fascia at the 10 mm trocar site was closed using a fascial closure device. This was closed using a 2-0 PDS suture. The remaining trocars were opened up and insufflation was allowed to escape. All the incisions were closed with 4-0 Vicryl. Skin glue was applied as dressing. She was awakened from anesthesia and taken to recovery in good condition. Surgical Findings: Normal cholangiograms. Significant pericholecystic edema. Mild gallbladder wall thickening Complications Complications: No Admit VTE Documentation VTE Present on Admission: No VTE Mechan Device Prophylaxis: SCD's VTE Pharm Prophylaxis ordered?: No Reason prophylaxis not ordered: Treatment Not Indicated
--- NOTE | 2025-05-11 12:56 | DS.PCM_ITS ---
Providers Date of Admission: 05/10/25 Date of Discharge: 05/11/25 Primary Care Physician: Dr. Mark Godwin MD Reason For Visit: SYMPTOMATIC CHOLELITHIASIS Diagnosis Discharge Diagnosis (1) Biliary colic: Status: Acute Code(s): K80.50 - Calculus of bile duct without cholangitis or cholecystitis without obstruction (2) Cholelithiasis: Status: Acute Code(s): K80.20 - Calculus of gallbladder without cholecystitis without obstruction (3) Abdominal pain: Status: Acute Code(s): R10.9 - Unspecified abdominal pain Plan I am seeing this patient in conjunction with Dr. Medley. He has independently evaluated this patient. Patient is a 44 y/o F who presented with a 1 day history of epigastric and RUQ pain with associated nausea. CT scan of the ab/pel demonstrated gallbladder distention with sludge, 0.7 mm gallstone and 1.3 cm gallstone. No evidence surrounding pericholecystic fluid. Patient continues to be painful in the right upper quadrant with palpation. Dr. Medley will plan to perform a laparoscopic cholecystectomy with intraoperative cholangiogram. Procedure details, risks and benefits have been explained. Patient has had the opportunity to ask and have questions answered. Patient verbally understands and agrees with the plan. Thank you for allowing us to participate in this patient's care. Medications at Discharge Home Medications bupropion HCl 150 mg 24 hr tablet, extended release 150 mg PO DAILY 05/10/25 ibuprofen 200 mg tablet 800 mg PO Q4H PRN PRN Pain 05/10/25 sertraline 100 mg tablet 150 mg PO DAILY 05/10/25 oxycodone 5 mg tablet 5 mg PO Q8H PRN pain 4 days #12 tabs 05/11/25 Physical Exam Const alert, oriented x3 and no apparent distress Weight / BMI Weight Weight: 194 lb Body Mass Index (BMI) 35.4 ABG / Lab / Microbiology Data 05/11/25 07:24 05/11/25 07:24 Laboratory: Laboratory Results - last 24 hr 05/10/25 21:06: WBC 11.6 H, RBC 4.39, Hgb 12.2, Hct 36.9 L, MCV 84.1, MCH 27.8, MCHC 33.1, RDW Std Deviation 41.0, RDW Coeff of Devi 13.3, Plt Count 286, MPV 10.3, Immature Gran % (Auto) 0.500, Neut % (Auto) 72.0 H, Lymph % (Auto) 19.6, [place] % (Auto) 5.0, Eos % (Auto) 2.5, Baso % (Auto) 0.4, Absolute Neuts (auto) 8.4 H, Absolute Lymphs (auto) 2.28, Nucleated RBC % 0, Sodium 137, Potassium 4.0, Chloride 104, Carbon Dioxide 21.3, Anion Gap 12, BUN 7, Creatinine 0.74, Estim Creat Clear Calc 104.78, Est GFR (MDRD) Non-Af 103, BUN/Creatinine Ratio 9.3 L, Glucose 125 H, Calcium 8.5, Total Bilirubin 0.21, AST 18, ALT 15, Alkaline Phosphatase 81, Total Protein 6.7, Albumin 4.0, Globulin 2.7, Albumin/Globulin Ratio 1.5, Lipase 34 05/10/25 21:22: Serum , Qual NEGATIVE 05/10/25 21:42: Urine Color Yellow, Urine Clarity Clear, Urine pH 7.0, Ur Specific [place] 1.010, Urine Protein Negative, Urine Glucose (UA) Normal, Urine Ketones Negative, Urine Occult Blood 10 H, Urine Nitrite Negative, Urine Bilirubin Negative, Urine Urobilinogen Normal, Ur Leukocyte Esterase 25 H, Urine RBC 0-5 SEEN, Urine WBC 0-5 SEEN, Ur Squamous Epith Cells 0-5 SEEN, Urine Bacteria 0 SEEN, Urine Mucus 0 SEEN 05/11/25 07:24: WBC 7.0, RBC 4.18 L, Hgb 11.5 L, Hct 35.7 L, MCV 85.4, MCH 27.5, MCHC 32.2, RDW Std Deviation 42.2, RDW Coeff of Devi 13.4, Plt Count 254, MPV 10.1, Immature Gran % (Auto) 0.900, Neut % (Auto) 71.3 H, Lymph % (Auto) 18.5 L, [place] % (Auto) 6.2, Eos % (Auto) 2.7, Baso % (Auto) 0.4, Absolute Neuts (auto) 5.0, Absolute Lymphs (auto) 1.29, Nucleated RBC % 0, Sodium 138, Potassium 3.9, Chloride 103, Carbon Dioxide 25.3, Anion Gap 9, BUN 7, Creatinine 0.68 L, Estim Creat Clear Calc 108.76, Est GFR (MDRD) Non-Af 110, BUN/Creatinine Ratio 10.3, G lucose 103 H, Calcium 8.3, Total Bilirubin 0.32, AST 40 H, ALT 33, Alkaline Phosphatase 80, Total Protein 6.3, Albumin 4.0, Globulin 2.4, Albumin/Globulin Ratio 1.7 Radiography Diagnostic Testing: Radiology Impression Abdomen/Pelvis CT 05/10/25 21:15 IMPRESSION: Gallbladder distended with sludge. There is 7 mm calculus within gallbladder fundus and 1.3 cm calculus impacted within gallbladder neck. There is no definite evidence of surrounding pericholecystic fluid. Diffuse hepatic steatosis. Scattered mesenteric lymph nodes likely reactive. Reading Location: [id number] Cholangiogram 05/11/25 07:22 IMPRESSION: Normal intraoperative cholangiogram. Reading Location: [id number] D/C Instructions May shower in (days): 1 Ice area for (Minutes): 30 Lifting Restrictions: No lifting pushing or pulling more than 20 pounds for 3 to 4 weeks Call your doctor if your incision/area has: Continuous Slow Oozing, Sudden Increased Bleeding, Increased Pain/ Swelling, Increased Redness, Foul Smelling Discharge and Swelling at the incision site Call your doctor if you observe: Fever of 101 or Higher Cleanse incision/area with: Soap & Water DC O2, CPAP, BIPAP Needs Home O2 Discharge instructions: No DC home with Oxygen: No Please Follow Up With: Rosalino Medley MD When: 2 weeks. Please call office to schedule appointment Meaningful Use Info Meaningful Use Meaningful Use Diagnoses (Choose all that apply): None applicable Discharge Plan Admission Admit Date/Time: 05/10/25 23:06 Primary Reason for Your Visit: Acute cholecystitis/cholelithiasis Attending Provider: Rosalino Medley Primary Care Provider: Mark Godwin Discharge Orders/Prescriptions Prescriptions: New oxycodone 5 mg tablet 5 mg PO Q8H PRN (Reason: pain) 4 Days Qty: 12 0RF Continued sertraline 100 mg tablet 150 mg PO DAILY bupropion HCl 150 mg tablet extended release 24 hr 150 mg PO DAILY ibuprofen 200 MG tablet 800 mg PO Q4H PRN PRN (Reason: Pain) Referrals / Follow Up: Mark Godwin MD [Primary Care Provider, Medical] Disposition Disposition (needs filled in before D/C Order can be placed): Home, Self Care
--- NOTE | 2025-05-11 13:02 | PCM.POST.ANE ---
Anesthesia: Postop Eval I Current Vital Signs Temperature: 97.3 F Pulse Rate: 89 Blood Pressure: 111/75 Respiratory Rate: 16 Pulse Ox: 80 Oxygen Delivery Method: Non-Rebreather Oxygen Flow Rate (L/min): 8 Assessment Airway patent: Yes Spontaneous unlabored respirations: Yes Mental status: Awake and Asleep nausea: No Vomiting: No Anesthesia Complication: No Fluid Hydration Crystalloid volume administer (ml): 1,050 Total IV fluid infused: 1,050 Progress Note Anesthesia document: Postop Eval 1 completed: Yes
--- NOTE | 2025-05-11 14:05 | POSTOPAN2_ITS ---
Anesthesia Postop Eval I Sum Postop Eval Completion status Anesthesia document: Postop Eval 1 completed: Yes Anesthesia Postop Eval I Summary Anesthesia Postop Eval I Summary: Anesthesia Postop Eval I: Assessment Summary Airway patent Yes 05/11/25 13:08 ADMINISTRATIVE ASSISTANT RECEPTIONIST.[email or web address] Spontaneous unlabored Yes 05/11/25 13:08 ADMINISTRATIVE ASSISTANT RECEPTIONIST.JDEF respirations Mental status Awake,Asleep 05/11/25 13:08 ADMINISTRATIVE ASSISTANT RECEPTIONIST.JDEF nausea No 05/11/25 13:08 ADMINISTRATIVE ASSISTANT RECEPTIONIST.JDEF Vomiting No 05/11/25 13:08 ADMINISTRATIVE ASSISTANT RECEPTIONIST.JDEF Anesthesia Postop Eval I: Fluid Summary Crystalloid volume administer 1,050 05/11/25 13:08 ADMINISTRATIVE ASSISTANT RECEPTIONIST.JDEF (ml) Colloids volume administered ( ml) Blood Product volume administered (ml) Total IV fluid infused 1,050 05/11/25 13:08 ADMINISTRATIVE ASSISTANT RECEPTIONIST.JDEF Anesthesia Postop Eval I: Summary Notes Anesthesia Complication No 05/11/25 13:08 ADMINISTRATIVE ASSISTANT RECEPTIONIST.JDEF Anesthesia Complication Comment: Post-operative progress note Anesthesia: Postop Eval II Evaluation Mental status: Awake and Calm Pain Level: 1 nausea: No Vomiting: No Complications Anesthesia Complication: No
--- NOTE | 2025-05-11 14:05 | PCM.POSTANE2 ---
Anesthesia Postop Eval I Sum Postop Eval Completion status Anesthesia document: Postop Eval 1 completed: Yes Anesthesia Postop Eval I Summary Anesthesia Postop Eval I Summary: Anesthesia Postop Eval I: Assessment Summary Airway patent Yes 05/11/25 13:08 [email or web address] Spontaneous unlabored Yes 05/11/25 13:08 CONCEPTOR.[email or web address] respirations Mental status Awake,Asleep 05/11/25 13:08 CONCEPTOR.[email or web address] nausea No 05/11/25 13:08 CONCEPTOR.JDEF Vomiting No 05/11/25 13:08 CONCEPTOR.[email or web address] Anesthesia Postop Eval I: Fluid Summary Crystalloid volume administer 1,050 05/11/25 13:08 CONCEPTOR.JDEF (ml) Colloids volume administered ( ml) Blood Product volume administered (ml) Total IV fluid infused 1,050 05/11/25 13:08 CONCEPTOR.[email or web address] Anesthesia Postop Eval I: Summary Notes Anesthesia Complication No 05/11/25 13:08 CONCEPTOR.JDEF Anesthesia Complication Comment: Post-operative progress note Anesthesia: Postop Eval II Evaluation Mental status: Awake and Calm Pain Level: 1 nausea: No Vomiting: No Complications Anesthesia Complication: No
--- NOTE | 2025-05-11 15:41 | PHA.DC_ITS ---
Pharmacy [place] Med Reconciliation Pharmacy Service has performed discharge medication reconciliation for this patient. Attempted to alcohol and drug counselor x2, patient not in room. Medications reviewed. The patient's discharge medication list was reviewed for discrepancies and discrepancies were resolved. Medications at Discharge Home Medications bupropion HCl 150 mg 24 hr tablet, extended release 150 mg PO DAILY 05/10/25 ibuprofen 200 mg tablet 800 mg PO Q4H PRN PRN Pain 05/10/25 sertraline 100 mg tablet 150 mg PO DAILY 05/10/25 oxycodone 5 mg tablet 5 mg PO Q8H PRN pain 4 days #12 tabs 05/11/25
--- NOTE | 2025-05-11 15:58 | SUR.PHASEI ---
1500 PT ASSISTED TO SIDE OF BED , PT ABLE TO DANGLE AND USE INCENTIVE SPIROMETER WITHOUT DIFFICULTY . PT THEN ASSISTED TO STAND ON THE SIDE OF BED AND TAKE A FEW STEPS. PULSE OX 94% ON 4L PER NC. PT THEN ASSISTED BACK TO BED WITH HOB ELEVATED . PULSE OX 88 % ON 4L PER NC , O2 INCREASED 6L PER NC . WILL CONTINUE TO MONITOR. THOMPSON DOMINGUEZ
--- NOTE | 2025-05-11 16:18 | SUR.PHASEI ---
REPORT CALLED TO JALEN BAIRES RN ON MS3. PT OK TO BE TRANSFERRED BACK TO ROOM 311. THOMPSON DOMINGUEZ
[2025-05-12] VITALS (7 sets, daily range): BP systolic 114–158; BP diastolic 76–83; PULSE 75–93; RESP 15–16; TEMP 36.4–37; O2SAT 92–98
[2025-05-12] MEDS: Clindamycin 600 MG/50 ML BAG 100 MG IV ×2 (00:06→05:39)
[2025-05-12] MEDS: Dextrose 5%/0.9% NaCl 1,000 ML 100 ML IV (01:20)
--- NOTE | 2025-05-12 07:33 | PN.SURG_ITS ---
Subjective Subjective Patient currently on room air this morning. Was able to tolerate p.o. Objective Data Objective Data Vital Signs: Vital Signs Temp Pulse Resp BP Pulse Ox O2 Del Method O2 Flow Rate 97.9 F 82 15 119/77 95 Room Air 1 05/12/25 05:00 05/12/25 05:40 05/12/25 05:00 05/12/25 05:00 05/12/25 05:40 05/12/25 05:40 05/12/25 04:00 Oxygen Flow Rate (L/min) 1 Oxygen Delivery Method Room Air Weight: 194 lb Body Mass Index (BMI) 35.4 Intake & Output: Intake and Output for Last 24 Hours 05/10/25 05/11/25 05/12/25 23:59 23:59 23:59 Intake Total 1811.5 / 1811.5 948.33 / 948.33 Output Total 855 / 855 600 / 600 Balance 956.5 / 956.5 348.33 / 348.33 Lab / Micro Data 05/11/25 07:24 05/11/25 07:24 Labs: Laboratory Results - last 24 hr 05/11/25 07:24: WBC 7.0, RBC 4.18 L, Hgb 11.5 L, Hct 35.7 L, MCV 85.4, MCH 27.5, MCHC 32.2, RDW Std Deviation 42.2, RDW Coeff of Devi 13.4, Plt Count 254, MPV 10.1, Immature Gran % (Auto) 0.900, Neut % (Auto) 71.3 H, Lymph % (Auto) 18.5 L, [place] % (Auto) 6.2, Eos % (Auto) 2.7, Baso % (Auto) 0.4, Absolute Neuts (auto) 5.0, Absolute Lymphs (auto) 1.29, Nucleated RBC % 0, Sodium 138, Potassium 3.9, Chloride 103, Carbon Dioxide 25.3, Anion Gap 9, BUN 7, Creatinine 0.68 L, Estim Creat Clear Calc 108.76, Est GFR (MDRD) Non-Af 110, BUN/Creatinine Ratio 10.3, G lucose 103 H, Calcium 8.3, Total Bilirubin 0.32, AST 40 H, ALT 33, Alkaline Phosphatase 80, Total Protein 6.3, Albumin 4.0, Globulin 2.4, Albumin/Globulin Ratio 1.7 Radiography Diagnostic Testing: Radiology Impression Cholangiogram 05/11/25 07:22 IMPRESSION: Normal intraoperative cholangiogram. Reading Location: [facility] Physical Exam Resp normal respiratory effort Cardio regular rate GI GI Narrative: Abdomen: Soft, nondistended, tender near incision's dressed clean dry and intact, no peritoneal signs Assessment & Plan Assessment/Plan (1) S/P laparoscopic cholecystectomy: PLAN: Plan Patient tolerating p.o., pain controlled, on room air. Okay to ID home. Saige Landon M.D. Pager: [phone] [facility] [address] [place] [address], [address] [place] [address] Office: [phone]
== END 2025-05-12 10:24 | disposition home or self-care (01) ==
LOC: ED 23:02 → MS3 23:19
PROVIDERS: Physician Assistant; Admitting Provider Surgery; Emergency Provider Emergency Medicine; PCP Family Medicine; Visit Provider Surgery
PROC: (CPT 47610; principal; 2025-05-11 10:40)
DX: K80.12 Calculus of gallbladder with acute and chronic cholecystitis without obstruction (principal); E72.12 Methylenetetrahydrofolate reductase deficiency; F17.290 Nicotine dependence, other tobacco product, uncomplicated
CPT/HCPCS: 47563; 00790; 36415; 74177; 74300; 76000; 80053; 81001; 83690; 84703; 85025; 88304; 93005; 94640; 94668; 96365; 96366; 96375; 96376; 99221; 99284; Q9967; A4216; C1769; G0378; J2405

== ENCOUNTER → 2025-06-14 | Outpatient (CLI) | payer BC, SELFPAY | END | disposition home or self-care (01) | LOC: SL 13:19 | PROVIDERS: PCP Family Medicine; Referring Provider Family Medicine; Visit Provider Family Medicine | DX: R06.83 Snoring (principal); R53.83 Other fatigue | CPT/HCPCS: 95806 ==